=== PATIENT | male | born 1970 | race Caucasian/White ===

== ENCOUNTER 2024-12-15 10:56 | Outpatient (CLI) | payer BC ==
[2024-12-15 13:21] LABS: #Basophils 0.04 10x3/uL (0.0-0.2); #Eosinophils 0.06 10x3/uL (0.0-0.7); #Monocytes 0.40 10x3/uL (0.11-0.59); #Neutrophils 3.72 10x3/uL (1.40-6.50); %Basophils 0.7 % (0.0-1.0); %Eosinophils 1.0 % (0.0-10.0); %Lymphocytes 27.8 % (21.0-51.0); %Monocytes 6.8 % (0.0-10.0); %Neutrophils 63.4 % (42.0-75.0); Hematocrit 46.6 % (42.0-52.0); Hemoglobin 14.9 g/dL (14.0-18.0); Mean Corpuscular Hemoglobin 28.0 pg (27.0-31.0); Mean Corpuscular Volume 87.4 fL (78.0-98.0); Platelet Count 235 10x3/uL (130-400); Red Blood Cell (RBC) Count 5.33 mill/uL (4.70-6.10); White Blood Cell (WBC) Count 5.87 10x3/uL (4.8-10.8)
[2024-12-15 13:54] LABS: Anion Gap 14 mmol/L (10-20); BUN (Urea Nitrogen) 20 mg/dL (8.4-25.7); Calc. Creatinine Clearance 0 mL/min (70-130); Calcium 9.3 mg/dL (7.8-10.44); Carbon Dioxide 24 mmol/L (22-29); Chloride 105 mmol/L (98-107); Glucose 127 mg/dL (70-105); Potassium 4.4 mmol/L (3.5-5.1); Sodium 139 mmol/L (136-145)
[2024-12-15 14:10] LABS: INR-International Normal Ratio 0.9; Prothrombin Time 12.6 sec (12.0-14.7)
[2024-12-15 14:11] LABS: PTT 28.2 sec (22.9-36.1)
== END 2024-12-15 10:57 | disposition home or self-care (01) ==
LOC: LABBT 10:56
PROVIDERS: ATTEND Surgery
DX: Z01.818 Encounter for other preprocedural examination (principal); M51.16 Intervertebral disc disorders with radiculopathy, lumbar region
CPT/HCPCS: 80048; 83036; 85025; 85610; 85730; 93005; 93010

== ENCOUNTER 2024-12-19 07:26 | Observation (INO) | payer BC ==
[2024-12-19] MEDS ORDERED: CEFAZOLIN 2 GM VIAL ONE (08:35)
[2024-12-19] MEDS ORDERED: Thrombin 5000 UNITS/5 ML VIAL ONE (10:08)
[2024-12-19] MEDS ORDERED: fentaNYL PF 100 MCG/2 ML SYRINGE ONE (10:15)
[2024-12-19] MEDS ORDERED: PROPOFOL 20 ML ONE (10:15)
[2024-12-19] MEDS ORDERED: Lidocaine 1% PF 5 ML VIAL ONE (10:16)
[2024-12-19] MEDS ORDERED: Rocuronium Bromide 10 MG/ML (10ML VIAL) ONE (10:16)
[2024-12-19] MEDS ORDERED: SUGAMMADEX SODIUM 200 MG/2 ML VIAL ONE (10:16)
[2024-12-19] MEDS ORDERED: Ondansetron PF 4 MG/2 ML Vial ONE (10:16)
[2024-12-19] MEDS ORDERED: HYDROmorphone 0.5 MG/0.5 ML SYRINGE ONE (10:19)
[2024-12-19] MEDS ORDERED: PHENYLEPHRINE-NS 100 MCG/ML 10 ML SYRINGE ONE (11:39)
[2024-12-19] MEDS ORDERED: Ondansetron PF 4 MG/2 ML Vial IVP PRN (12:57)
[2024-12-19] MEDS ORDERED: Acetaminophen 325 MG TAB PO PRN (12:57)
[2024-12-19] MEDS ORDERED: Milk Of Magnesia 30 ML UDCUP PO PRN (12:57)
[2024-12-19] MEDS ORDERED: Acetaminophen/Codeine 30-300mg Tablet PO PRN (12:57)
[2024-12-19] MEDS ORDERED: diphenhydrAMINE 25 MG CAP PO PRN (12:57)
[2024-12-19] MEDS ORDERED: HYDROcodone/Acetaminophen 5/325 mg Tablet PO PRN (13:03)
[2024-12-19] MEDS ORDERED: Benzocaine/Menthol 1 LOZ LOZ PO PRN (13:05)
[2024-12-19] MEDS: metFORMIN 500 MG TAB PO SCH (17:30)
[2024-12-19] MEDS ORDERED: Glucagon 1 MG/ML KIT IM PRN (23:00)
[2024-12-19] MEDS ORDERED: Dextrose 50% Abboject 50 ML SYRINGE SLOW IVP PRN (23:00)
[2024-12-20] MEDS: Insulin Glargine 30 UNITS/0.3 ML VIAL SC SCH (09:19)
[2024-12-20] MEDS: Pantoprazole 40 MG DR.TAB PO SCH (09:19)
[2024-12-20 11:46] VITALS: TEMP 98
[2024-12-20 11:48] VITALS: BP 114/70
[2024-12-20 11:49] VITALS: BMI 244772.9
[2024-12-22] MEDS ORDERED: FLU (Fluarix Triv) 25-26 (6MOS UP)/PF 45 MCG/0.5 ML Syringe IM ONE (09:00)
== END 2024-12-20 11:51 | disposition home or self-care (01) ==
LOC: SDC 07:26 → SURG B 14:20
PROVIDERS: ADMIT Surgery; ATTEND Surgery
PROC: 0SB20ZZ Excision of Lumbar Vertebral Disc, Open Approach (ICD-10-PCS; principal; 2024-12-19)
DX: M51.16 Intervertebral disc disorders with radiculopathy, lumbar region (principal); Z88.2 Allergy status to sulfonamides
CPT/HCPCS: 36416; J1100; J1171; J1815; J2250; J2272; J2405; J2704; J3010; J3373; J7030